=== PATIENT | male | born 1945 | race Caucasian/White ===

== ENCOUNTER 2019-04-16 06:53 | Day surgery (SDC) | payer OTHER ==
[2019-04-15 10:01] LABS: BASOPHILS # (AUTO) 0.1 X10'3 (0-0.2); BASOPHILS % (AUTO) 1.4 % (0-1); EOSINOPHILS # (AUTO) 0.2 X10'3 (0-0.9); EOSINOPHILS % (AUTO) 2.3 % (0-6); HEMATOCRIT 49.9 % (42.0-52.0); LYMPHOCYTES # (AUTO) 2.3 X10'3 (1.1-4.8); LYMPHOCYTES % (AUTO) 28.7 % (21-51); MEAN CORPUSCULAR HEMOGLOBIN 31.1 PG (27.0-31.0); MEAN CORPUSCULAR HGB CONC 34.1 g/dL (33.0-36.5); MEAN CORPUSCULAR VOLUME 91.1 FL (78-98); MEAN PLATELET VOLUME 7.7 FL (7.4-10.4); MONOCYTES # (AUTO) 0.9 X10'3 (0-0.9); MONOCYTES % (AUTO) 10.7 % (2-12); NEUTROPHILS # (AUTO) 4.6 X10'3 (1.8-7.7); NEUTROPHILS % (AUTO) 56.9 % (42-75); PLATELET COUNT 351 X10'3 (140-440); RED BLOOD COUNT 5.47 X10'6 (4.70-6.10); RED CELL DISTRIBUTION WIDTH 14.8 % (11.5-14.5); WHITE BLOOD COUNT 8.1 X10'3 (4.5-11.0)
[2019-04-15 10:12] LABS: ANION GAP 2 (8-16); BLOOD UREA NITROGEN 19 MG/DL (7-18); CALCIUM 9.2 MG/DL (8.5-10.1); CHLORIDE 104 MMOL/L (99-107); GLUCOSE 89 MG/DL (70-104); PARTIAL THROMBOPLASTIN TIME 27 SECONDS (22-32); POTASSIUM 4.4 MMOL/L (3.5-5.1); SODIUM 139 MMOL/L (135-145); eGFR 74 ML/MIN
[~2019-04-16] VITALS: Ht 170.2 cm; Wt 68.6 kg
[2019-04-16] VITALS (10 sets, daily range): BP systolic 100–140; BP diastolic 43–103
[2019-04-16] MEDS ORDERED: normal saline 1,000 ML IV SCH (07:15)
[2019-04-16] MEDS ORDERED: diphenhydrAMINE 25mg capsule PO PRN (07:15)
[2019-04-16] MEDS ORDERED: LORazepam 0.5 MG tablet PO PRN (07:15)
[2019-04-16] MEDS ORDERED: FISH12002 PO (07:23)
[2019-04-16] MEDS ORDERED: LISI10TA4 PO (07:23)
[2019-04-16] MEDS ORDERED: UBID50TA3 PO (07:23)
[2019-04-16] MEDS ORDERED: MULT-1141 PO (07:23)
[2019-04-16] MEDS ORDERED: CARV3.122 PO (07:23)
[2019-04-16] MEDS ORDERED: LIDOcaine/PRILOcaine 5gm cream TP ONE (07:40)
[2019-04-16] MEDS ORDERED: nitroGLYCERIN-Tridil 50MG/D5W 250 ML IV ONE (09:26)
[2019-04-16] MEDS ORDERED: LIDOcaine 1% (10mg/ml)w/preservative injection 20ml MDV ONE (09:27)
[2019-04-16] MEDS ORDERED: midazolam 2 mg/2 ml injection ONE (09:27)
[2019-04-16] MEDS ORDERED: heparin 1,000unit/ml 10ml vial 10 ML ONE (09:27)
[2019-04-16] MEDS ORDERED: iohexol 350 MG/ML 50ML vial IV ONE (09:27)
[2019-04-16] MEDS ORDERED: fentaNYL/PF 50MCG/1 ML 2ML syringe ONE (09:27)
[2019-04-16] MEDS ORDERED: verapamil 2.5 mg/ml inj IV ONE (09:27)
[2019-04-16] MEDS ORDERED: iohexol 350MG/ML 100ml bottle IV ONE (09:27)
[2019-04-16] MEDS ORDERED: normal saline 1000ml 1,000 ML IV ONE (11:25)
[2019-04-16 18:25] LABS: ISTAT Hct ART 44 %PCV (42-52); ISTAT O2 SATURATION ARTERIAL 86 % (95-98); ISTAT SOURCE ART
[2019-04-16 18:26] LABS: ISTAT Hct MIX 45 %PCV (42-52); ISTAT O2 SATURATION MIX VENOUS 62 % (60-80); ISTAT SOURCE MIX
== END 2019-04-16 14:55 | disposition home or self-care (01) ==
LOC: SSTAY O 06:53
PROVIDERS: ATTEND Internal Medicine Cardiovascular Disease
DX: R06.02 Shortness of breath (principal); R07.89 Other chest pain; I25.10 Atherosclerotic heart disease of native coronary artery without angina pectoris; E78.5 Hyperlipidemia, unspecified; I42.0 Dilated cardiomyopathy; I50.22 Chronic systolic (congestive) heart failure; Z79.899 Other long term (current) drug therapy; F12.10 Cannabis abuse, uncomplicated; Z98.890 Other specified postprocedural states; Z98.41 Cataract extraction status, right eye; Z98.42 Cataract extraction status, left eye; Z98.52 Vasectomy status; F17.210 Nicotine dependence, cigarettes, uncomplicated; Z72.89 Other problems related to lifestyle; Z88.0 Allergy status to penicillin
CPT/HCPCS: 36415; 80048; 82803; 85014; 85025; 85610; 85730; 93005; 93460; 99152; 99153; C1769; C1894; J1644; J2001; J2250; J3010; J7030; Q0163; Q9967; A4620; J3490

== ENCOUNTER 2019-08-20 08:56 | Outpatient (CLI) | payer OTHER ==
[~2019-08-20 08:56] MED LIST: CARV3.122 PO; FISH12002 PO; LISI10TA4 PO; MULT-1141 PO; UBID50TA3 PO
[2019-08-20 09:53] LABS: ALBUMIN 3.7 G/DL (3.4-5.0); ANION GAP 5 (8-16); BLOOD UREA NITROGEN 19 MG/DL (7-18); BUN/CREATININE RATIO 19.4 (5.4-32.0); CALCIUM 9.5 MG/DL (8.5-10.1); CHLORIDE 105 MMOL/L (99-107); CREATININE 0.98 MG/DL (0.60-1.10); GLUCOSE 100 MG/DL (70-104); POTASSIUM 4.4 MMOL/L (3.5-5.1); SODIUM 140 MMOL/L (135-145); TOTAL CARBON DIOXIDE 29.9 MMOL/L (24-32); eGFR 75 ML/MIN
== END 2019-08-20 23:59 | disposition home or self-care (01) ==
LOC: LAB 08:56
PROVIDERS: ATTEND Internal Medicine Cardiovascular Disease
DX: R06.02 Shortness of breath (principal)
CPT/HCPCS: 36415; 80048; 83880

== ENCOUNTER 2022-02-10 12:49 | Emergency (ER) | payer OTHER ==
[~2022-02-10] VITALS: Ht 170.2 cm; Wt 54.5 kg
[~2022-02-10 12:49] MED LIST changes: +LISI10TA27 PO; -LISI10TA4 PO
[2022-02-10 15:19] LABS: BASOPHILS # (AUTO) 0.1 X10'3 (0-0.2); BASOPHILS % (AUTO) 0.9 % (0-1); EOSINOPHILS % (AUTO) 0.4 % (0-6); HEMATOCRIT 48.5 % (42.0-52.0); LYMPHOCYTES # (AUTO) 2.5 X10'3 (1.1-4.8); LYMPHOCYTES % (AUTO) 19.3 % (21-51); MEAN CORPUSCULAR HEMOGLOBIN 28.8 PG (27.0-31.0); MEAN CORPUSCULAR HGB CONC 32.9 g/dL (33.0-36.5); MEAN CORPUSCULAR VOLUME 87.5 FL (78-98); MEAN PLATELET VOLUME 6.8 FL (7.4-10.4); MONOCYTES # (AUTO) 1.3 X10'3 (0-0.9); MONOCYTES % (AUTO) 9.6 % (2-12); NEUTROPHILS # (AUTO) 9.1 X10'3 (1.8-7.7); NEUTROPHILS % (AUTO) 69.8 % (42-75); PLATELET COUNT 634 X10'3 (140-440); RED BLOOD COUNT 5.55 X10'6 (4.70-6.10); RED CELL DISTRIBUTION WIDTH 14.3 % (11.5-14.5); WHITE BLOOD COUNT 13.1 X10'3 (4.5-11.0)
[2022-02-10 15:33] LABS: CHLORIDE 96 MMOL/L (99-107); GLUCOSE 103 MG/DL (70-104); POTASSIUM 4.7 MMOL/L (3.5-5.1); SODIUM 135 MMOL/L (135-145)
[2022-02-10 15:34] LABS: ALANINE AMINOTRANSFERASE 38 U/L (12-78); ALBUMIN 2.7 G/DL (3.4-5.0); ALBUMIN/GLOBULIN RATIO 0.5 (1.1-1.5); ALKALINE PHOSPHATASE 160 IU/L (46-116); ANION GAP 9 (8-16); ASPARTATE AMINO TRANSFERASE 30 U/L (10-37); BILIRUBIN,TOTAL 0.6 MG/DL (0.1-1.0); BLOOD UREA NITROGEN 23 MG/DL (7-18); BUN/CREATININE RATIO 21.5 (5.4-32.0); CALCIUM 9.9 MG/DL (8.5-10.1); CREATININE 1.07 MG/DL (0.60-1.10); TOTAL CARBON DIOXIDE 29.7 MMOL/L (24-32); TOTAL PROTEIN 8.2 G/DL (6.4-8.2); eGFR 68 ML/MIN
[2022-02-10] MEDS ORDERED: DOXY100C76 PO (16:52)
[2022-02-10 18:26] VITALS: BP 94/55
== END 2022-02-10 18:31 | disposition home or self-care (01) ==
LOC: ER 12:50
DX: J04.10 Acute tracheitis without obstruction (principal); R06.02 Shortness of breath; Z85.89 Personal history of malignant neoplasm of other organs and systems; Z88.0 Allergy status to penicillin; Z79.2 Long term (current) use of antibiotics; Z79.899 Other long term (current) drug therapy
CPT/HCPCS: 36415; 71045; 80053; 83880; 84484; 85025; 93005; 94760; 94799; 99285; A6449

== ENCOUNTER 2022-06-16 15:57 | Emergency (ER) | payer OTHER ==
[~2022-06-16] VITALS: Ht 172.7 cm; Wt 56.8 kg
[2022-06-16 16:28] VITALS: BP 127/43
[2022-06-16 19:01] LABS: CLARITY,URINE CLEAR (Clear); COLOR,URINE YELLOW (Yellow); GLUCOSE, URINE NEGATIVE (Neg); KETONES,URINE TRACE mg/dl (Neg); LEUKOCYTE ESTERASE ,URINE NEGATIVE (Neg); NITRITES, URINE NEGATIVE (Neg); OCCULT BLOOD,URINE NEGATIVE (Neg); PH,URINE 5.5 (4.8-8.0); PROTEIN,URINE NEGATIVE (Neg); UROBILINOGEN,URINE 0.2 E.U/dL (0.2-1.0)
[2022-06-16 19:07] LABS: UA COLLECTION TYPE NON-SPECIFIED
[2022-06-16 19:11] LABS: BASOPHILS # (AUTO) 0.1 X10'3 (0-0.2); BASOPHILS % (AUTO) 0.8 % (0-1); EOSINOPHILS # (AUTO) 0.1 X10'3 (0-0.9); EOSINOPHILS % (AUTO) 1.2 % (0-6); HEMATOCRIT 49.7 % (42.0-52.0); HEMOGLOBIN 16.6 g/dl (14.0-17.9); LYMPHOCYTES % (AUTO) 38.7 % (21-51); MEAN CORPUSCULAR HEMOGLOBIN 30.1 PG (27.0-31.0); MEAN CORPUSCULAR HGB CONC 33.3 g/dL (33.0-36.5); MEAN CORPUSCULAR VOLUME 90.4 FL (78-98); MEAN PLATELET VOLUME 6.9 FL (7.4-10.4); MONOCYTES # (AUTO) 0.7 X10'3 (0-0.9); MONOCYTES % (AUTO) 8.4 % (2-12); NEUTROPHILS % (AUTO) 50.9 % (42-75); PLATELET COUNT 420 X10'3 (140-440); RED CELL DISTRIBUTION WIDTH 14.6 % (11.5-14.5); WHITE BLOOD COUNT 7.8 X10'3 (4.5-11.0)
[2022-06-16 19:31] LABS: ALANINE AMINOTRANSFERASE 22 U/L (12-78); ALBUMIN 3.7 G/DL (3.4-5.0); ALBUMIN/GLOBULIN RATIO 0.7 (1.1-1.5); ALKALINE PHOSPHATASE 117 IU/L (46-116); ANION GAP 10 (8-16); ASPARTATE AMINO TRANSFERASE 22 U/L (10-37); BILIRUBIN,TOTAL 0.5 MG/DL (0.1-1.0); BLOOD UREA NITROGEN 15 MG/DL (7-18); BUN/CREATININE RATIO 15.2 (5.4-32.0); CALCIUM 9.8 MG/DL (8.5-10.1); CHLORIDE 101 MMOL/L (99-107); CREATININE 0.99 MG/DL (0.60-1.10); GLUCOSE 85 MG/DL (70-104); MAGNESIUM 2.2 MG/DL (1.5-2.4); POTASSIUM 3.9 MMOL/L (3.5-5.1); SODIUM 139 MMOL/L (135-145); TOTAL CARBON DIOXIDE 27.8 MMOL/L (24-32); TOTAL PROTEIN 8.8 G/DL (6.4-8.2); eGFR 74 ML/MIN
[2022-06-16] MEDS ORDERED: iohexol 300mg/ml 100ml inj. ONE (19:39)
== END 2022-06-16 21:05 | disposition home or self-care (01) ==
LOC: ER 15:58
DX: Z43.1 Encounter for attention to gastrostomy (principal); Z88.0 Allergy status to penicillin
CPT/HCPCS: 36415; 74177; 80053; 81003; 83605; 83735; 84145; 85025; 87040; 93005; 99285; J3490; Q9967

== ENCOUNTER 2022-07-03 07:41 | Day surgery (SDC) | payer OTHER ==
[2022-07-03] VITALS (9 sets, daily range): BP systolic 95–121; BP diastolic 35–60
[~2022-07-03] VITALS: Ht 170.2 cm; Wt 60.5 kg
[2022-07-03] MEDS ORDERED: normal saline 1000ml 1,000 ML IV PRN (08:10)
[2022-07-03] MEDS ORDERED: SPIR25TA5 PO (08:41)
[2022-07-03] MEDS ORDERED: super beta prostate PO (08:41)
[2022-07-03] MEDS ORDERED: SACU1TAB PO (08:41)
[2022-07-03] MEDS ORDERED: LOSA25TA96 PO (08:41)
[2022-07-03] MEDS ORDERED: glucagon, human recombinant 1mg kit ONE (08:52)
[2022-07-03] MEDS ORDERED: midazolam 1 mg/ML 2ml injection ONE ×2 (08:52→09:54)
[2022-07-03] MEDS ORDERED: fentaNYL/PF 50MCG/1 ML 2ML syringe ONE ×2 (08:53→10:02)
[2022-07-03] MEDS ORDERED: iohexol 350MG/ML 100ml bottle IV ONE (08:59)
[2022-07-03] MEDS ORDERED: LIDOcaine 1% 30ml preserv. free vial ONE (09:00)
[2022-07-03 09:04] LABS: BASOPHILS # (AUTO) 0.1 X10'3 (0-0.2); EOSINOPHILS # (AUTO) 0.1 X10'3 (0-0.9); EOSINOPHILS % (AUTO) 2.8 % (0-6); HEMATOCRIT 46.8 % (42.0-52.0); HEMOGLOBIN 15.3 g/dl (14.0-17.9); LYMPHOCYTES # (AUTO) 1.3 X10'3 (1.1-4.8); LYMPHOCYTES % (AUTO) 24.9 % (21-51); MEAN CORPUSCULAR HEMOGLOBIN 29.3 PG (27.0-31.0); MEAN CORPUSCULAR HGB CONC 32.6 g/dL (33.0-36.5); MEAN CORPUSCULAR VOLUME 89.8 FL (78-98); MEAN PLATELET VOLUME 7.6 FL (7.4-10.4); MONOCYTES # (AUTO) 0.7 X10'3 (0-0.9); NEUTROPHILS # (AUTO) 2.9 X10'3 (1.8-7.7); NEUTROPHILS % (AUTO) 57.3 % (42-75); PLATELET COUNT 297 X10'3 (140-440); RED BLOOD COUNT 5.21 X10'6 (4.70-6.10); RED CELL DISTRIBUTION WIDTH 14.5 % (11.5-14.5); WHITE BLOOD COUNT 5.1 X10'3 (4.5-11.0)
[2022-07-03] MEDS ORDERED: zinc oxide ointment 30gm tube TP PRN (09:45)
[2022-07-03] MEDS ORDERED: diphenhydrAMINE 50 mg/ml inj ONE (09:46)
[2022-07-03] MEDS ORDERED: clindamycin 600mg/D5W 50ml 50 ML IV ONE ×2 (10:00→10:06)
[2022-07-03] MEDS ORDERED: HYDROcodone/acetaminophen 5mg/325mg tablet PO ONE ×2 (11:45→12:20)
== END 2022-07-03 13:40 | disposition home or self-care (01) ==
LOC: SSTAY O 07:41
PROVIDERS: ATTEND Radiology Diagnostic Radiology
DX: Z43.1 Encounter for attention to gastrostomy (principal); I11.0 Hypertensive heart disease with heart failure; I50.9 Heart failure, unspecified; F17.200 Nicotine dependence, unspecified, uncomplicated; Z90.02 Acquired absence of larynx; Z85.21 Personal history of malignant neoplasm of larynx; Z88.0 Allergy status to penicillin; Z88.8 Allergy status to other drugs, medicaments and biological substances; Z79.899 Other long term (current) drug therapy
CPT/HCPCS: 36415; 49440; 85025; 85610; 99152; 99153; C1713; J1200; J1610; J2250; J3010; J3490; J7030; Q9967; A4620; A6449; B4087

== ENCOUNTER 2022-07-21 11:36 | Day surgery (SDC) | payer OTHER ==
[~2022-07-21] VITALS: Ht 170.2 cm; Wt 56.1 kg
[~2022-07-21 11:36] MED LIST changes: -CARV3.122 PO; -FISH12002 PO; -LISI10TA27 PO; +LOSA25TA96 PO; +SACU1TAB PO; +SPIR25TA5 PO; -UBID50TA3 PO; +super beta prostate PO
[2022-07-21] MEDS ORDERED: normal saline 1000ml 1,000 ML IV PRN (11:55)
[2022-07-21 12:07] VITALS: BP 109/41
[2022-07-21] MEDS ORDERED: iohexol 350MG/ML 100ml bottle IV ONE (13:23)
[2022-07-21] MEDS ORDERED: fentaNYL/PF 50MCG/1 ML 2ML syringe ONE (13:23)
== END 2022-07-21 15:00 | disposition home or self-care (01) ==
LOC: SSTAY O 11:36
PROVIDERS: ATTEND Radiology Vascular & Interventional Radiology
DX: K94.23 Gastrostomy malfunction (principal); C32.9 Malignant neoplasm of larynx, unspecified; I11.0 Hypertensive heart disease with heart failure; I50.9 Heart failure, unspecified; F17.290 Nicotine dependence, other tobacco product, uncomplicated; Z79.899 Other long term (current) drug therapy; Z88.0 Allergy status to penicillin; Z88.8 Allergy status to other drugs, medicaments and biological substances; Y83.8 Other surgical procedures as the cause of abnormal reaction of the patient, or of later complication, without mention of misadventure at the time of the procedure
CPT/HCPCS: 49450; C1769; J7030; Q9967; A4620; J3010

== ENCOUNTER 2024-09-05 10:51 | Emergency (ER) | payer OTHER ==
[~2024-09-05] VITALS: Ht 167.6 cm; Wt 66.0 kg
[~2024-09-05 10:51] MED LIST changes: -LOSA25TA96 PO
[2024-09-05] MEDS ORDERED: iohexol 350MG/ML 100ml bottle IV ONE (11:01)
--- NOTE | 2024-09-05 11:03 | Physician Documentation ---
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 Patient's right side is flaccid. Chest pain, no shortness a breath. Patient was not on any blood thinners. INITIALLY LASTED WELL TIME WAS THOUGHT TO BE 9:00 A.M.. HOWEVER THE PATIENT STATES THAT HE GOT UP OUT OF BED AT 6:00 A.M. AND FELL TO THE FLOOR. THAT IS WHEN HE NOTICED HE HAD RIGHT-SIDED WEAKNESS. PATIENT THEREFORE IS OUTSIDE THE WINDOW FOR TENECTEPLASE. Review of systems: All systems were reviewed and are negative except for what is indicated in the history of present illness. Past Medical History: Laryngeal cancer, hypertension Past Surgical History: Laryngectomy Social History: TOBACCO USE, DENIES ALCOHOL OR DRUG USE Medications: Reviewed as documented Nursing Notes Allergies: Reviewed as documented in Nursing Notes Medication Reconciliation Allergies: Coded Allergies: Penicillins (Verified Allergy, Unknown, 04/16/19) Scheduled Mu-Vits-Min Th/Lycopene/Lutein (Centrum Silver Tablet), 1 EACH PO DAILY, (Reported) Sacubitril/Valsartan (Entresto 24 mg-26 mg Tablet), 1 TAB PO BID, (Reported) Spironolactone (Spironolactone), 1 TAB PO DAILY, (Reported) [super beta prostate], 1 TAB PO DAILY, (Reported) Past Medical History Past Medical History: *CANCER* Past Surgical History: cancer surgery Other Past Surgical History: tracheostomy Lives with: Spouse Lives In: Home Occupation: retired Review of Systems All Other Systems at this time: Reviewed and Negative ROS Patient denies any other acute symptoms other than above. All other systems are negative Physical Exam Pulse Oximetry Reflects: adequate oxygenation General Appearance: alert General Appearance General Appearance: ACUTELY AND CHRONICALLY ILL-APPEARING, CACHECTIC HEENT: Normal OP, moist oral mucosa, PERRL, EOMI, HEAD AND FACE APPEAR ATRAUMATIC Neck: supple, normal ROM, trachea midline, STOMA AT CRICOID NOTCH Pulmonary: No respiratory distress, CTA, BS equal Cardiac: RRR, no murmur, rub or gallop, GI: nondistended, soft, nontender, normal bowel sounds, no guarding, no rebound Extremities: normal ROM, no swelling, non-tender, EXTREMITIES APPEAR ATRAUMATIC Skin: intact, dry, warm, no rashes Neuro: AWAKE ALERT ORIENTED X3, UNABLE TO EVALUATE SPEECH SECONDARY TO HIS LARYNGECTOMY AND HE USES A DEVICE TO SPEAK. PATIENT IS ABLE TO FOLLOW COMMANDS AND ANSWER QUESTIONS APPROPRIATELY. SENSATION IS INTACT TO LIGHT TOUCH TO THE RIGHT UPPER AND RIGHT LOWER EXTREMITY. THERE IS SOME RIGHT FACIAL DROOP, LEFT UPPER EXTREMITY IS FLACCID AND RIGHT LOWER EXTREMITY IS FLACCID. Psych: normal affect, good eye contact, no apparent hallucination Progress Results/Orders Results/Orders Orders - REANNA AMBROSIO MD Electrocardiogram (09/05/24 10:59) Type And Screen (09/05/24 10:59) Urinalysis, Cult If Indicated (09/05/24 10:59) Chest,Single View (09/05/24 11:45) Ct Stroke Alert (09/05/24 10:59) Cta Neck/Head (09/05/24 10:59) * Vital Signs Routine* [id number] (09/05/24 10:59) * Blood Glucose Assessment * ONCE (09/05/24 10:59) * Npo Until Passed Bedside Swa (09/05/24 10:59) Nursing Swallow Screen (09/05/24 10:59) Completed Orders - REANNA AMBROSIO MD Electrocardiogram (09/05/24 10:59) Cbc/Diff (09/05/24 10:59) BMP (09/05/24 10:59) Pt Inr (09/05/24 10:59) PTT (09/05/24 10:59) Chest,Single View (09/05/24 11:45) Ct Stroke Alert (09/05/24 10:59) Cta Neck/Head (09/05/24 10:59) Iohexol 350mg/Ml 100ml (Omnipaque 350mg/ (09/05/24 11:01) Vital Signs 09/05/24 09/05/24 09/05/24 11:02 11:20 11:42 Pulse 77 74 71 Resp 14 18 16 B/P (MAP) 95/66 108/56 120/57 Pulse Ox 95 92 93 O2 Flow Rate 0 Laboratory Tests Test 09/05/24 11:15 White Blood Count 12.9 H Red Blood Count 4.94 Hemoglobin 14.5 Hematocrit 44.4 Mean Corpuscular Volume 89.8 Mean Corpuscular Hemoglobin 29.4 Mean Corpuscular Hemoglobin Concent 32.7 L Red Cell Distribution Width 15.3 H Platelet Count 279 Mean Platelet Volume 7.3 L Neutrophils (%) (Auto) 89.5 H Lymphocytes (%) (Auto) 3.6 L Monocytes (%) (Auto) 6.7 Eosinophils (%) (Auto) 0 Basophils (%) (Auto) 0.2 Neutrophils # (Auto) 11.6 H Lymphocytes # (Auto) 0.5 L Monocytes # (Auto) 0.9 Eosinophils # (Auto) 0.0 Basophils # (Auto) 0.0 CBC Comment Prothrombin Time 10.5 INR International Normalized Ratio 1.0 Activated Partial Thromboplast Time 27 Coagulation Comments Sodium Level 141 Potassium Level 4.3 Chloride Level 108 H Carbon Dioxide Level 20.9 L Anion Gap 12 Blood Urea Nitrogen 29 H Creatinine 1.05 Estimated GFR/1.73 m2 68 BUN/Creatinine Ratio 27.6 H Glucose Level 117 H Calcium Level 8.4 L Albumin 2.9 L Chemistry Comments Medical Decision Making Findings Differential diagnosis includes but is not limited to: ISCHEMIC CVA, HEMORRHAGIC CVA, HYPOGLYCEMIA, BRAIN MASS EKG independent interpretation: Performed at 11:20 a.m.. Normal sinus rhythm, heart rate 72, normal axis, IVCD Chest x-ray, single view, indication: Independent interpretation: Head CT without IV contrast, indication: Stroke alert Impression: 1. Acute to subacute infarct involving the left basal ganglia, external capsule, and insular cortex. This may be better characterized with noncontrast MRI of the brain to include diffusion-weighted images. 2. Decreased attenuation in the right basal ganglia may be due to acute or chronic ischemic change. CTA head and neck, indication: Stroke alert Impression: 1. 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 2. No aneurysmal dilatation about the [place] of [place]. 3. No significant stenosis of the right cervical carotid arteries or right vertebral artery. The left vertebral artery is diffusely hypoplastic, likely developmental, although there may be superimposed atherosclerotic etiology. 4. Postoperative changes of laryngectomy, tracheostomy, and bilateral cataract extraction surgery. 5. Severe emphysema 6. Paranasal sinus disease. 7. Severe cervical degenerative disc disease and facet arthropathy, with multilevel significant neural foraminal stenosis bilaterally. 8. Critical findings discussed with Dr. Ambrosio by Dr. Pierson via phone on 09/05/2024 01:34 PM CDT. Laboratory data independent interpretation: CBC: Leukocytosis of 12.9, otherwise unremarkable CMP: Unremarkable Coags: Normal Urinalysis: Pending Emergency department course/medical decision-making: Patient is a 79-year-old man who presents with right hemiparesis secondary to acute CVA. Patient's last known well time is at best 6:00 a.m. and is likely longer than that. Patient outside of the window for tenecteplase. Test results and treatment plan reviewed with the patient and his . Patient has evidence on the head CT of an acute/subacute ischemic stroke to the left basal ganglia extending to the internal capsule and insular cortex. There was no apparent injury on physical exam from the fall that he had this morning at 6:00 a.m.. Consultation/communications: 11:34 a.m.: Case discussed with the radiologist head CT and preliminary report of the CTA. Patient has complete occlusion of the left ICA. 11:59 a.m.: Case discussed with neurointerventional radiologist at [facility] and emergency medicine physician Dr. Lin for transfer. 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 I provided critical care services, which included medication orders, frequent reevaluations of the patient's condition and response to treatment, ordering and reviewing test results, and discussing the case with necessary consultants. Critical care time was exclusive of necessary procedure time. The critical care time associated with the care of the patient was 60 minutes. Signature Scribe Signature: No scribe Attestation: No scribe REANNA AMBROSIO MD September 05, 2024 11:02
--- NOTE | 2024-09-05 11:22 | ELECTROCARDIOGRAPH REPORT ---
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 Eduardo Morris Measurements Intervals [place] Rate: 72 P: 52 SD: 59 QRS: 68 QRSD: 158 T: 241 QT: 414 QTc: 454 Interpretive Statements Sinus rhythm Supraventricular bigeminy Short SD interval IVCD, consider atypical LBBB Electronically Signed On 09-05-2024 11:26:[address] Eduardo Morris Please click the below link to view image of tracing.
[2024-09-05 11:37] LABS: BASOPHILS % (AUTO) 0.2 % (0-1); EOSINOPHILS % (AUTO) 0 % (0-6); HEMATOCRIT 44.4 % (42.0-52.0); HEMOGLOBIN 14.5 g/dl (14.0-17.9); LYMPHOCYTES # (AUTO) 0.5 X10'3 (1.1-4.8); LYMPHOCYTES % (AUTO) 3.6 % (21-51); MEAN CORPUSCULAR HEMOGLOBIN 29.4 PG (27.0-31.0); MEAN CORPUSCULAR HGB CONC 32.7 g/dL (33.0-36.5); MEAN CORPUSCULAR VOLUME 89.8 FL (78-98); MEAN PLATELET VOLUME 7.3 FL (7.4-10.4); MONOCYTES # (AUTO) 0.9 X10'3 (0-0.9); MONOCYTES % (AUTO) 6.7 % (2-12); NEUTROPHILS # (AUTO) 11.6 X10'3 (1.8-7.7); NEUTROPHILS % (AUTO) 89.5 % (42-75); PLATELET COUNT 279 X10'3 (140-440); RED BLOOD COUNT 4.94 X10'6 (4.70-6.10); RED CELL DISTRIBUTION WIDTH 15.3 % (11.5-14.5); WHITE BLOOD COUNT 12.9 X10'3 (4.5-11.0)
--- NOTE | 2024-09-05 11:39 | RADIOLOGY REPORT ---
EXAM: CT CT STROKE ALERT HISTORY: right hemiparesis COMPARISON: None TECHNIQUE: Noncontrast axial CT images of the head were performed. Sagittal and coronal reformatted i mages were obtained. This CT exam was performed using 1 or more of the following dose reduction techn iques: Automated exposure control, adjustment of the mA and/or kv according to patient size, or the u se of iterative reconstruction techniques. Radiation Dose: CTDI volume is 60.97 mGy. Dose-length product is 1116.38 mGy*cm FINDINGS: There is decreased attenuation in the left basal ganglia extending to the external capsule and insula r cortex (images 14-19, series 2). There is mild decreased attenuation in the right basal ganglia. No intracranial hemorrhage, mass, midline shift, hydrocephalus, or evidence of acute large vessel infar ct. There is mild mucosal thickening of the left frontal, left sphenoid, and bilateral ethmoid air ce lls. There are postoperative changes of bilateral cataract extraction surgery. The bilateral mastoid air cells and middle ear spaces are clear. No cranial fracture or scalp edema. IMPRESSION: 1. Acute to subacute infarct involving the left basal ganglia, external capsule, and insular cortex. This may be better characterized with noncontrast MRI of the brain to include diffusion-weighted imag es. 2. Decreased attenuation in the right basal ganglia may be due to acute or chronic ischemic change. 3. Paranasal sinus disease. Critical findings discussed with Dr. Ambrosio by Dr. Pierson via phone on 09/05/2024 01:34 PM CDT.
[2024-09-05 11:45] LABS: ALBUMIN 2.9 G/DL (3.4-5.0); ANION GAP 12 (8-16); BLOOD UREA NITROGEN 29 MG/DL (7-18); BUN/CREATININE RATIO 27.6 (10.0-20.0); CALCIUM 8.4 MG/DL (8.5-10.1); CHLORIDE 108 MMOL/L (99-107); CREATININE 1.05 MG/DL (0.60-1.10); GLUCOSE 117 MG/DL (70-104); POTASSIUM 4.3 MMOL/L (3.5-5.1); SODIUM 141 MMOL/L (135-145); TOTAL CARBON DIOXIDE 20.9 MMOL/L (24-32); eCRCL 53 ML/MIN; eGFR 68 ML/MIN
[2024-09-05 11:46] LABS: APTT 27 SECONDS (22-32); PROTHROMBIN TIME 10.5 SECONDS (9.0-12.0)
--- NOTE | 2024-09-05 11:53 | RADIOLOGY REPORT ---
EXAM: CT CTA NECK/HEAD HISTORY: right hemiparesis 79-year-old male with right hemiparesis, history of throat cancer. COMPARISON: Noncontrast CT scan of the head from earlier same day. TECHNIQUE: High-resolution helical CT images of the head and neck were performed with 100 ml omnipaqu e 350 IV contrast utilizing CTA protocol. Sagittal and coronal reformatted images and 3-D MIP reconst ructions were obtained. This CT exam was performed using one or more of the following dose reduction techniques: Automated exposure control, adjustment of the mA and/or kV according to patient size, or use of iterative reconstruction technique. Radiation Dose: CT Dose: CTDI volume is 14.79 mGy. Dose-length product is 559.64 mGy*cm FINDINGS: [place]: No evidence of aneurysmal dilatation or significant stenosis about the ci rcle of [place]. The left cavernous ICA is completely occluded. There is a small amount of contrasted blood flow in the left EMILIE A1 segment and cavernous carotid artery, presumably due to collateral flow from the right anterior circulation via patent anterior communicating artery. There is markedly dimi nished blood flow in the left MCA. The right MCA, bilateral EMILIE A2 segments, and bilateral engineering administrator are p atent. There is origin of the left HAND SHOES SEWER. The right cavernous and petrous ICAs are patent. Right carotid system: No significant stenosis of the CCA or cervical ICA. There are thick atheroscler otic calcifications of the right carotid bulb. There is 50% narrowing of the proximal ECA. Left carotid system: There is thick mural thrombus in the mid to distal CCA. The cervical ICA is comp letely occluded. No significant stenosis of the ECA. Vertebrobasilar: The right vertebral artery and basilar artery are patent. The left vertebral artery is diffusely hypoplastic. Miscellaneous: There are postoperative changes of bilateral cataract extraction surgery. There is sev ere emphysema of the lung apices. There are postoperative changes of laryngectomy, tracheostomy, and bilateral cataract extraction surgery. There is mucosal thickening in the left frontal, bilateral e thmoid, and left sphenoid sinuses. There is severe cervical degenerative disc disease and facet arthr opathy with multilevel significant neural foraminal stenosis bilaterally IMPRESSION: 1. 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 2. No aneurysmal dilatation about the [place] of [place]. 3. No significant stenosis of the right cervical carotid arteries or right vertebral artery. The left vertebral artery is diffusely hypoplastic, likely developmental, although there may be superimposed atherosclerotic etiology. 4. Postoperative changes of laryngectomy, tracheostomy, and bilateral cataract extraction surgery. 5. Severe emphysema 6. Paranasal sinus disease. 7. Severe cervical degenerative disc disease and facet arthropathy, with multilevel significant neura l foraminal stenosis bilaterally. 8. Critical findings discussed with Dr. Ambrosio by Dr. Pierson via phone on 09/05/2024 01:34 PM CDT .
[2024-09-05] MEDS: normal saline 1000ml 1,000 ML IV ONE (12:09)
[2024-09-05] MEDS: normal saline 1000ml 1,000 ML IV SCH (12:09)
--- NOTE | 2024-09-05 12:26 | RADIOLOGY REPORT ---
CHEST RADIOGRAPH Indication: Stroke Alert Technique: Single frontal view of the chest was obtained Comparison: CHEST,SINGLE VIEW on DOS: 02/10/22 FINDINGS: The cardiac silhouette is unremarkable. The lungs demonstrate perihilar airspace opacities. Left mid/ lower lung airspace opacities.. The pulmonary vasculature is prominent. There is no pleural effusion. . There is no pneumothorax. Postsurgical changes in the left supraclavicular fossa region. Aortic a therosclerotic disease. IMPRESSION: 1. As above << >>
[2024-09-05 12:52] VITALS: BP 147/56; PULSE 80; RESP 16; TEMP 98.5; O2SAT 93
--- NOTE | 2024-09-05 13:05 | [facility] CONSULT REPORT ---
[facility] Procedure Note [facility] Procedure Note Consult [facility] Note # Demographics Consult Type: Acute Stroke Level 1 (0-4.5 hrs) Patient Location: Emergency Room First Name: CORY Last Name: DARLEEN Date of : 1945 Age: 79 Gender: Male Facility: [facility] Time of Initial Page (): 09/05/2024 11:18 Time of Return Call (): 09/05/2024 11:18 # HPI Chief Complaint: - weakness (focal) History: 79M with history of throat cancer presents with right-sided weakness. [id number] last night. Says he woke up before 6 this morning and fell at that time. Possible Thrombolytic candidate: - no intracranial hemorrhage history - no recent major surgery - no known active major internal bleeding - no known blood disorders - no stroke in last 3 months - not on warfarin or NOACs # Scores Time of exam and NIHSS (): 09/05/2024 11:20 Level of Consciousness 1a: [0] = Alert; keenly responsive LOC Questions 1b: [0] = Answers both questions correctly LOC Commands 1c: [0] = Performs both tasks correctly Best Gaze 2: [0] = Normal Visual 3: [1] = Partial hemianopia Facial Palsy 4: [2] = Partial paralysis Motor Arm Left 5a: [0] = No drift Motor Arm Right 5b: [3] = No effort against gravity Motor Leg Left 6a: [0] = No drift Motor Leg Right 6b: [3] = No effort against gravity Limb Ataxia 7: [0] = Absent Sensory 8: [2] = Severe to total sensory loss Best Language 9: [0] = No aphasia Dysarthria 10: [0] = Normal Extinction and Inattention 11: [0] = No abnormality NIHSS Total: 11 # Data Time Head CT personally read by me (): 09/05/2024 11:[address]: - no bleed - preliminarily reviewed by me, please refer to radiology read for official reading early ischemic change in the left basal ganglia CTA Head: - preliminarily reviewed by me, please refer to radiology read for official reading L M1 occlusion CTA Neck: - preliminarily reviewed by me, please refer to radiology read for official reading L ICA occlusion # Assessment Impression: - Ischemic Stroke (Acute) # Plan Thrombolytic/Intervention: IA Intervention Thrombolytic Exclusion: > 4.5 hours IA Decision Making: - Based on available knowledge of the patients condition, imaging results, and potential for disability without intervention, I recommend the team consider proceeding with IA therapy. - Discussed with ED provider. - I discussed the potential for intra-arterial therapy with the patient and/or family. Time IA Intervention Recommended ([facility] ): 09/05/2024 11:31 IA Management Recommendations: - HOB flat as tolerated until thrombectomy - use IV fluids and/or vasopressors to keep SBP at stated goal - Transfer to facility that is IA capable for consideration of mechanical thrombectomy Pressors as needed for SBP 150-200 Other: - If patient has any neurological deterioration please call me back immediately # Logistics Attestation of consult completion: The patient is located at: [facility]. Facility staff participated in the visit. I performed this telemedicine visit from my offsite office utilizing interactive 2 way audio and visual telecommunication technology. Consent: Verbal consent was obtained from the patient and/or family for this encounter. Total time spent in telemedicine encounter: I spent 10 minutes reviewing clinical data and/or imaging, obtaining history, examining the patient, communicating with the onsite care team, and in preparation of this report. Electronically signed at 09/05/2024 11:40 ([facility] ) by Jacky Grant MD Neuro Consult Order placed for: Yes JACKY GRANT MD September 05, 2024 13:05
== END 2024-09-05 12:57 | disposition short-term general hospital (02) ==
LOC: ER 10:52
DX: I63.9 Cerebral infarction, unspecified (principal); I10 Essential (primary) hypertension; Z85.21 Personal history of malignant neoplasm of larynx; Z85.819 Personal history of malignant neoplasm of unspecified site of lip, oral cavity, and pharynx; Z88.0 Allergy status to penicillin
CPT/HCPCS: 36415; 70450; 70496; 70498; 71045; 80048; 85025; 85610; 85730; 86870; 86885; 86900; 86901; 93005; 96360; 99291; J7030; Q9967